=== PATIENT | female | born 1990 | race Caucasian/White ===

== ENCOUNTER 2016-08-27 17:52 | Emergency (ER) | payer OTHER ==
[2016-08-27 18:07] VITALS: BP 126/81; PULSE 74; RESP 14; TEMP 98.1; O2SAT 99
--- NOTE | 2016-08-27 18:34 | UCPHY ---
H & P Time Seen by Provider: 08/27/16 18:21 Patient Type: Established HPI/ROS: This patient has right ear pain over the past 4 hours 7/10 intensity achy in nature after antecedent URI symptoms comprised of nasal congestion and mild sore throat for 5 days. She was seen in the clinic on Thursday with a negative rapid strep test at that time. Since then her throat pain has diminished and nearly resolved. ROS: No fevers or other constitutional complaints. She reports no change in her hearing. No drainage from the ear. No other HEENT complaints. She has a mild cough with no other associated pulmonary complaints. No pleuritic pain or shortness of breath. 5 point ROS is otherwise negative. Smoking Status: Never smoked Physical Exam: Physical Exam Vital signs are normal. General: No acute distress HEENT: Nose: Clear discharge right external canals clear right TM is dull and erythematous with a bulge. Left external canal and TM are clear oropharynx: No significant erythema or exudates. No dysphonia. Neck: Mild posterior cervical lymphadenopathy. Supple with no meningismus. Eyes: Pupils equal and react to light. Extraocular motions are intact. Lungs: Clear to auscultation with no rales rhonchi or wheeze. No respiratory distress. Cardiac: Regular rate and rhythm with no murmur gallop or rub. Skin: No rash or pallor. Neuro: Alert with no sensorimotor deficits. Constitutional: Initial Vital Signs Temperature (C) 36.7 C 08/27/16 18:00 Heart Rate 74 08/27/16 18:00 Respiratory Rate 14 08/27/16 18:00 Blood Pressure 126/81 H 08/27/16 18:00 O2 Sat (%) 99 08/27/16 18:00 O2 Delivery Mode Room Air Allergies/Adverse Reactions: No Known Allergies Allergy (Unverified 08/27/16 17:59) Home Medications: Medication Instructions Recorded Albuterol Hfa Anes Only [Proair 2 puffs IH Q4 PRN #1 mdi 08/27/16 Hfa Icu (*)] Azithromycin [Zithromax] 250 mg PO DAILY #6 tab 08/27/16 Flonase Nasal [place] 08/27/16 Mucinex 08/27/16 Departure - Departure Disposition: Home, Routine, Self-Care Clinical Impression: Otitis media, Cough, History of asthma Instructions: Otitis Media (ED) Additional Instructions: Diagnoses: 1. Right otitis media 2. Cough Plan: Humidifier Continue Flonase Naproxen anti-inflammatory for discomfort and swelling Zithromax antibiotic Albuterol inhaler with spacer for cough, wheeze or shortness of breath No work for the next 2 days. Return for any significant worsening despite treatment plan or go to the emergency department Referrals: NONE *PRIMARY CARE P,. [Primary Care Provider] - As per Instructions Stand Alone Forms: Work Excuse Prescriptions: Albuterol Hfa Anes Only [Proair Hfa Icu (*)] 2 puffs IH Q4 PRN #1 mdi PRN Reason: Wheezing Azithromycin [Zithromax] 250 mg PO DAILY #6 tab - PQRS PQRS Measurement: NA
== END 2016-08-27 18:38 | disposition home or self-care (01) ==
LOC: CED 17:52 → EDBD 17:52 → CED 18:38
DX: H66.91 Otitis media, unspecified, right ear (principal); R05 Cough; J45.909 Unspecified asthma, uncomplicated
CPT/HCPCS: 99214-PO; G0463-PO